=== PATIENT | female | born 1955 | race Caucasian/White ===

== ENCOUNTER 2021-04-01 15:16 | Inpatient (IN) ==
[2021-04-01] MEDS ORDERED: ALBUTEROL/IPRATROPIUM 3 ML NEB RESP TX STA (15:47)
[2021-04-01 15:57] LABS: Basophils % 0.2 % (0.0-0.8); Eosinophils # 0.1 10*3/uL (0.0-0.87); Eosinophils % 0.3 % (0.00-10.9); Hematocrit 43.3 VOL% (35.7-47.0); Hemoglobin 13.9 GM/DL (12.0-16.0); Immature Granulocytes % 1.2 %; Lymphocytes # 1.9 10*3/uL (1.4-4.0); Lymphocytes % 11.2 % (21.3-54.2); Mean Corpuscular HGB Conc 32.1 GM/DL (32-36); Mean Corpuscular Volume 97.1 FL (87-102); Mean Platelet Volume 10.4 FL (9.6-12.0); Monocytes % 4.1 % (1.7-12.7); Platelet Count 349 T/CUMM (130-400); Red Blood Count 4.46 MC/CUMM (3.8-5.5); Red Cell Distribution Width 17.1 % (9.3-17.3); White Blood Count 17.2 T/CUMM (4-12)
[2021-04-01 16:05] LABS: ABG Base Excess 0.4 MMOL/L (-2.5-2.5); ABG HCO3 23.5 MMOL/L (20-26); ABG Oxygen Saturation 41.4 % (95-100); ABG PCO2 50.1 MM HG (35-48); ABG TCO2 24.1 MMOL/L (23-27)
[2021-04-01 16:07] LABS: ABG PO2 27.2 MM HG (80-95)
[2021-04-01 16:25] LABS: ABG Base Excess -0.1 MMOL/L (-2.5-2.5); ABG HCO3 24.2 MMOL/L (20-26); ABG Oxygen Saturation 91.4 % (95-100); ABG PCO2 40.7 MM HG (35-48); ABG PH 7.392 (7.35-7.45); ABG PO2 67.3 MM HG (80-95); ABG TCO2 21.6 MMOL/L (23-27)
[2021-04-01 17:17] LABS: Bilirubin,Urine Negative (Negative); Blood, Urine Negative (Negative); Glucose,Urine (UA) Negative (Negative); Ketones,Urine 5 mg/dL (Negative); Mucus,Urine Occasional /LPF (Occasional); Nitrite,Urine Negative (Negative); Protein,Urine 30 MG/DL; RBC,Urine <1 /HPF (0-4); Squamous Epithelial Cell,Urine Occasional /HPF (0-10); Urine Appearance CLOUDY (Clear); Urine Color Amber (Yellow); Urine Urobilinogen < 2.0 EU/DL (0.2-1.0)
[2021-04-01] MEDS ORDERED: NALOXONE 0.4 MG/ML VIAL ONE (18:03)
[2021-04-01] MEDS ORDERED: NALOXONE 0.4 MG/ML VIAL IV STA ×2 (18:31→21:06)
[2021-04-01 19:59] LABS: Albumin 2.6 G/DL (3.4-5.0); Bilirubin,Total 0.6 MG/DL (0.2-1.0); Calcium 9.1 MG/DL (8.5-10.1); Osmolality,Calculated 292.8 MOS/KG (273-304); Potassium 4.2 MMOL/L (3.5-5.1); Total Protein 7.1 G/DL (6.4-8.2)
[2021-04-01] MEDS ORDERED: ONDANSETRON 4 MG/2 ML VIAL IV PRN (21:47)
[2021-04-01] MEDS ORDERED: NICOTINE 21 MG/24 HR PATCH TRANSDERM PRN (21:47)
[2021-04-01] MEDS ORDERED: GLUCAGON 1 MG VIAL IM PRN (21:47)
[2021-04-01] MEDS ORDERED: ACETAMINOPHEN 325 MG TABLET PO PRN (21:47)
[2021-04-01] MEDS ORDERED: guaiFENesin/DM ER 600-30 MG TABLET PO PRN (21:47)
[2021-04-01] MEDS ORDERED: DEXTROSE 50% 25 GM/50 ML VIAL IV PRN (21:47)
[2021-04-01] MEDS ORDERED: FUROSEMIDE 20 MG TABLET PO PRN (22:26)
[2021-04-01] MEDS ORDERED: [UNRECOGNIZED DRUG - REMARK] BOTH NARES PRN (22:26)
[2021-04-02] MEDS: SODIUM CHLORIDE 0.9% 1,000 ML IV SCH ×2 (00:31→12:15)
[2021-04-02] MEDS: ALBUTEROL/IPRATROPIUM 3 ML NEB RESP TX SCH ×4 (00:54→19:18)
[2021-04-02] MEDS ORDERED: MORPHINE 4 MG/1 ML VIAL IV ONE (08:58)
[2021-04-02] MEDS: BUDESONIDE/FORMOTEROL 80-4.5 INHALER 6.9 GM INH SCH ×2 (09:25→21:18)
[2021-04-02] MEDS: FLUTICASONE 50 MCG NASAL SPRAY 16 GM BOTTLE BOTH NARES SCH (09:27)
[2021-04-02] MEDS: GABAPENTIN 300 MG CAPSULE PO SCH ×4 (09:28→21:48)
[2021-04-02] MEDS: METOPROLOL SUCCINATE XL 25 MG TABLET PO SCH (09:30)
[2021-04-02] MEDS: MONTELUKAST 10 MG TABLET PO SCH (09:30)
[2021-04-02] MEDS: LOSARTAN 50 MG TABLET PO SCH (09:30)
[2021-04-02] MEDS: FOLIC ACID 1 MG TABLET PO SCH (09:31)
[2021-04-02] MEDS: DICLOFENAC SODIUM 75 MG TABLET PO SCH ×2 (09:31→21:46)
[2021-04-02] MEDS: BACLOFEN 10 MG TABLET PO SCH ×4 (09:31→21:46)
[2021-04-02] MEDS: oxyCODONE/ACETAMINOPHEN 5-325 MG TABLET PO PRN (12:28)
[2021-04-02] MEDS: methylPREDNISolone SOD SUC 40 MG/1 ML VIAL IV SCH ×2 (13:30→18:14)
[2021-04-02] MEDS ORDERED: ENOXAPARIN 80 MG/0.8 ML SYRINGE SUBCUT SCH (15:00)
[2021-04-02] MEDS: HEPARIN DRIP 25,000 UNITS/500 ML PREMIX IV SCH (16:28)
[2021-04-02] MEDS: SIMVASTATIN 20 MG TABLET PO SCH ×2 (21:16→21:48)
[2021-04-02] MEDS: PIPERACILLIN/TAZOBACTAM 3,375 MG in SODIUM CHLORIDE 0.9% 100 ML IV SCH (21:18)
[2021-04-03] MEDS: methylPREDNISolone SOD SUC 40 MG/1 ML VIAL IV SCH ×4 (00:38→18:15)
[2021-04-03] MEDS: ALBUTEROL/IPRATROPIUM 3 ML NEB RESP TX SCH ×4 (01:00→19:12)
[2021-04-03] MEDS: PIPERACILLIN/TAZOBACTAM 3,375 MG in SODIUM CHLORIDE 0.9% 100 ML IV SCH ×3 (04:08→23:01)
[2021-04-03 04:56] LABS: Basophils % 0.2 % (0.0-0.8); Hematocrit 40.5 VOL% (35.7-47.0); Hemoglobin 13.2 GM/DL (12.0-16.0); Immature Granulocytes % 0.9 %; Immature Granulocytes Absolute 0.16 #; Lymphocytes % 5.5 % (21.3-54.2); Mean Corpuscular HGB Conc 32.6 GM/DL (32-36); Mean Corpuscular Volume 95.3 FL (87-102); Mean Platelet Volume 10.3 FL (9.6-12.0); Monocytes % 2.5 % (1.7-12.7); Neutrophils % 90.9 % (38.7-73.9); Platelet Count 337 T/CUMM (130-400); Red Blood Count 4.25 MC/CUMM (3.8-5.5); Red Cell Distribution Width 16.9 % (9.3-17.3); White Blood Count 17.6 T/CUMM (4-12)
[2021-04-03 05:11] LABS: Calcium 9.7 MG/DL (8.5-10.1)
[2021-04-03 05:12] LABS: Osmolality,Calculated 295.6 MOS/KG (273-304); Potassium 3.7 MMOL/L (3.5-5.1)
[2021-04-03 05:28] LABS: Lymphocytes 11 % (20-55); Segmented Neutrophils 84 % (50-85); Total Cells Counted 100
[2021-04-03 05:29] LABS: Hypochromasia Slight; Microcytosis Slight; Platelet Estimate Adequate
[2021-04-03] MEDS: MORPHINE 4 MG/1 ML VIAL IV PRN ×2 (08:02→13:23)
[2021-04-03] MEDS: CETIRIZINE 10 MG TABLET PO PRN (08:04)
[2021-04-03] MEDS: FLUTICASONE 50 MCG NASAL SPRAY 16 GM BOTTLE BOTH NARES SCH (08:04)
[2021-04-03] MEDS: GABAPENTIN 300 MG CAPSULE PO SCH ×2 (08:04→22:17)
[2021-04-03] MEDS: DICLOFENAC SODIUM 75 MG TABLET PO SCH ×2 (08:04→22:17)
[2021-04-03] MEDS: FOLIC ACID 1 MG TABLET PO SCH (08:04)
[2021-04-03] MEDS: BUDESONIDE/FORMOTEROL 80-4.5 INHALER 6.9 GM INH SCH ×2 (08:04→22:17)
[2021-04-03] MEDS: METOPROLOL SUCCINATE XL 25 MG TABLET PO SCH (08:04)
[2021-04-03] MEDS: MONTELUKAST 10 MG TABLET PO SCH (08:04)
[2021-04-03] MEDS: BACLOFEN 10 MG TABLET PO SCH ×3 (08:05→22:17)
[2021-04-03] MEDS: LOSARTAN 50 MG TABLET PO SCH (08:05)
[2021-04-03] MEDS: oxyCODONE/ACETAMINOPHEN 5-325 MG TABLET PO PRN ×2 (10:51→22:17)
[2021-04-03] MEDS: HEPARIN DRIP 25,000 UNITS/500 ML PREMIX IV SCH ×2 (16:19→22:57)
[2021-04-03] MEDS: MORPHINE ER 15 MG TABLET PO SCH (17:25)
[2021-04-03] MEDS: SIMVASTATIN 20 MG TABLET PO SCH (22:17)
[2021-04-03] MEDS ORDERED: HEPARIN 5,000 UNIT/1 ML VIAL IV ONE (22:47)
[2021-04-04] MEDS: methylPREDNISolone SOD SUC 40 MG/1 ML VIAL IV SCH ×4 (01:10→18:19)
[2021-04-04] MEDS: ALBUTEROL/IPRATROPIUM 3 ML NEB RESP TX SCH ×4 (02:46→19:31)
[2021-04-04 02:49] LABS: Basophils % 0.1 % (0.0-0.8); Hematocrit 36.5 VOL% (35.7-47.0); Hemoglobin 11.6 GM/DL (12.0-16.0); Immature Granulocytes % 2.5 %; Immature Granulocytes Absolute 0.57 #; Lymphocytes # 1.1 10*3/uL (1.4-4.0); Lymphocytes % 4.9 % (21.3-54.2); Mean Corpuscular HGB Conc 31.8 GM/DL (32-36); Mean Corpuscular Volume 96.1 FL (87-102); Mean Platelet Volume 10.3 FL (9.6-12.0); Monocytes % 3.9 % (1.7-12.7); NRBC # 0.02 10*3/uL; Neutrophils % 88.6 % (38.7-73.9); Platelet Count 355 T/CUMM (130-400); Red Cell Distribution Width 16.9 % (9.3-17.3)
[2021-04-04 03:09] LABS: Calcium 8.9 MG/DL (8.5-10.1); Osmolality,Calculated 304.4 MOS/KG (273-304)
[2021-04-04 03:13] LABS: Lymphocytes 10 % (20-55); Platelet Estimate Normal; Segmented Neutrophils 88 % (50-85); Total Cells Counted 100
[2021-04-04] MEDS: PIPERACILLIN/TAZOBACTAM 3,375 MG in SODIUM CHLORIDE 0.9% 100 ML IV SCH ×3 (06:37→21:58)
[2021-04-04] MEDS: MORPHINE ER 15 MG TABLET PO SCH ×3 (07:07→18:18)
[2021-04-04] MEDS: GABAPENTIN 300 MG CAPSULE PO SCH ×3 (09:00→21:52)
[2021-04-04] MEDS: FOLIC ACID 1 MG TABLET PO SCH (09:00)
[2021-04-04] MEDS: LOSARTAN 50 MG TABLET PO SCH (09:00)
[2021-04-04] MEDS: METOPROLOL SUCCINATE XL 25 MG TABLET PO SCH (09:00)
[2021-04-04] MEDS: DICLOFENAC SODIUM 75 MG TABLET PO SCH ×2 (09:00→21:52)
[2021-04-04] MEDS: BACLOFEN 10 MG TABLET PO SCH ×3 (09:00→21:52)
[2021-04-04] MEDS: MONTELUKAST 10 MG TABLET PO SCH (09:00)
[2021-04-04] MEDS: FLUTICASONE 50 MCG NASAL SPRAY 16 GM BOTTLE BOTH NARES SCH (09:03)
[2021-04-04] MEDS: BUDESONIDE/FORMOTEROL 80-4.5 INHALER 6.9 GM INH SCH ×2 (09:03→22:29)
[2021-04-04] MEDS: oxyCODONE/ACETAMINOPHEN 5-325 MG TABLET PO PRN (10:35)
[2021-04-04] MEDS: HEPARIN DRIP 25,000 UNITS/500 ML PREMIX IV SCH (13:26)
[2021-04-04] MEDS: SODIUM CHLORIDE 0.45% 1,000 ML IV SCH (14:30)
[2021-04-04] MEDS: BACITRACIN OINT 0.9 GM PACK TOP SCH (18:19)
[2021-04-04] MEDS: SIMVASTATIN 20 MG TABLET PO SCH (21:52)
[2021-04-05] MEDS: ALBUTEROL/IPRATROPIUM 3 ML NEB RESP TX SCH ×4 (00:18→19:09)
[2021-04-05] MEDS: methylPREDNISolone SOD SUC 40 MG/1 ML VIAL IV SCH ×4 (02:13→21:21)
[2021-04-05 02:17] LABS: Basophils % 0.2 % (0.0-0.8); Hematocrit 36.3 VOL% (35.7-47.0); Hemoglobin 11.5 GM/DL (12.0-16.0); Immature Granulocytes % 5.2 %; Immature Granulocytes Absolute 1.32 #; Lymphocytes % 3.9 % (21.3-54.2); Mean Corpuscular HGB Conc 31.7 GM/DL (32-36); Mean Corpuscular Volume 96.5 FL (87-102); Mean Platelet Volume 10.3 FL (9.6-12.0); Monocytes % 5.4 % (1.7-12.7); NRBC # 0.03 10*3/uL; Neutrophils % 85.3 % (38.7-73.9); Platelet Count 392 T/CUMM (130-400); Red Blood Count 3.76 MC/CUMM (3.8-5.5); White Blood Count 25.2 T/CUMM (4-12)
[2021-04-05 02:34] LABS: Calcium 8.7 MG/DL (8.5-10.1); Osmolality,Calculated 298.8 MOS/KG (273-304); Potassium 3.7 MMOL/L (3.5-5.1)
[2021-04-05 02:41] LABS: Lymphocytes 4 % (20-55); Segmented Neutrophils 93 % (50-85); Total Cells Counted 100
[2021-04-05 02:42] LABS: Anisocytosis 1+; Hypochromasia 1+; Microcytosis 1+; Platelet Estimate Normal; Polychromasia Few
[2021-04-05] MEDS: SODIUM CHLORIDE 0.45% 1,000 ML IV SCH ×2 (03:48→17:25)
[2021-04-05] MEDS: HEPARIN DRIP 25,000 UNITS/500 ML PREMIX IV SCH ×2 (03:58→21:27)
[2021-04-05] MEDS: PIPERACILLIN/TAZOBACTAM 3,375 MG in SODIUM CHLORIDE 0.9% 100 ML IV SCH ×3 (05:16→21:19)
[2021-04-05] MEDS: MORPHINE ER 15 MG TABLET PO SCH ×3 (05:17→21:19)
[2021-04-05] MEDS: FOLIC ACID 1 MG TABLET PO SCH (08:18)
[2021-04-05] MEDS: BACLOFEN 10 MG TABLET PO SCH ×3 (08:18→21:19)
[2021-04-05] MEDS: MONTELUKAST 10 MG TABLET PO SCH (08:18)
[2021-04-05] MEDS: DICLOFENAC SODIUM 75 MG TABLET PO SCH ×2 (08:19→21:19)
[2021-04-05] MEDS: METOPROLOL SUCCINATE XL 25 MG TABLET PO SCH (08:19)
[2021-04-05] MEDS: GABAPENTIN 300 MG CAPSULE PO SCH ×3 (08:19→21:19)
[2021-04-05] MEDS: LOSARTAN 50 MG TABLET PO SCH (08:19)
[2021-04-05] MEDS: oxyCODONE/ACETAMINOPHEN 5-325 MG TABLET PO PRN ×2 (08:29→14:32)
[2021-04-05] MEDS: BUDESONIDE/FORMOTEROL 80-4.5 INHALER 6.9 GM INH SCH ×2 (08:45→21:20)
[2021-04-05] MEDS: FLUTICASONE 50 MCG NASAL SPRAY 16 GM BOTTLE BOTH NARES SCH (08:45)
[2021-04-05] MEDS: BACITRACIN OINT 0.9 GM PACK TOP SCH (08:46)
[2021-04-05] MEDS ORDERED: METHOTREXATE 2.5 MG TABLET PO SCH (09:00)
[2021-04-05] MEDS: SIMVASTATIN 20 MG TABLET PO SCH (21:19)
[2021-04-06] MEDS: ALBUTEROL/IPRATROPIUM 3 ML NEB RESP TX SCH ×4 (00:31→21:10)
[2021-04-06 02:22] LABS: Basophils # 0.1 10*3/uL (0.0-0.2); Basophils % 0.3 % (0.0-0.8); Hematocrit 35.7 VOL% (35.7-47.0); Hemoglobin 11.3 GM/DL (12.0-16.0); Immature Granulocytes % 6.6 %; Immature Granulocytes Absolute 1.67 #; Lymphocytes # 1.4 10*3/uL (1.4-4.0); Lymphocytes % 5.4 % (21.3-54.2); Mean Corpuscular HGB Conc 31.7 GM/DL (32-36); Mean Corpuscular Volume 97.8 FL (87-102); Mean Platelet Volume 10.3 FL (9.6-12.0); Neutrophils % 81.7 % (38.7-73.9); Platelet Count 390 T/CUMM (130-400); Red Blood Count 3.65 MC/CUMM (3.8-5.5); Red Cell Distribution Width 16.9 % (9.3-17.3); White Blood Count 25.5 T/CUMM (4-12)
[2021-04-06 02:43] LABS: Calcium 8.2 MG/DL (8.5-10.1); Osmolality,Calculated 298.7 MOS/KG (273-304); Potassium 3.8 MMOL/L (3.5-5.1)
[2021-04-06 02:44] LABS: Lymphocytes 2 % (20-55); Platelet Estimate Normal; Segmented Neutrophils 96 % (50-85); Total Cells Counted 100
[2021-04-06] MEDS: PIPERACILLIN/TAZOBACTAM 3,375 MG in SODIUM CHLORIDE 0.9% 100 ML IV SCH ×3 (04:43→21:50)
[2021-04-06] MEDS: methylPREDNISolone SOD SUC 40 MG/1 ML VIAL IV SCH ×3 (05:55→21:56)
[2021-04-06] MEDS: oxyCODONE/ACETAMINOPHEN 5-325 MG TABLET PO PRN ×2 (06:00→17:35)
[2021-04-06] MEDS: MORPHINE 4 MG/1 ML VIAL IV PRN ×3 (08:42→22:36)
[2021-04-06] MEDS: LOSARTAN 50 MG TABLET PO SCH (09:00)
[2021-04-06] MEDS: MORPHINE ER 15 MG TABLET PO SCH ×2 (09:00→19:50)
[2021-04-06] MEDS: GABAPENTIN 300 MG CAPSULE PO SCH ×3 (09:00→21:50)
[2021-04-06] MEDS: BACLOFEN 10 MG TABLET PO SCH ×3 (09:00→21:50)
[2021-04-06] MEDS: FOLIC ACID 1 MG TABLET PO SCH (09:00)
[2021-04-06] MEDS: MONTELUKAST 10 MG TABLET PO SCH (09:00)
[2021-04-06] MEDS ORDERED: LIDOCAINE 1% 20 ML VIAL ONE (10:37)
[2021-04-06] MEDS ORDERED: ROPIVACAINE 0.5% 30 ML VIAL ONE (10:37)
[2021-04-06] MEDS ORDERED: DEXMEDETOMIDINE 200 MCG/2 ML VIAL ONE (11:28)
[2021-04-06] MEDS ORDERED: LIDOCAINE 2% 5 ML VIAL ONE (11:28)
[2021-04-06] MEDS ORDERED: TISSUE ADHESIVE 1 EACH APPLICATOR TOP ONE (11:28)
[2021-04-06] MEDS ORDERED: propofoL 200 MG/20 ML VIAL IV ONE (11:28)
[2021-04-06] MEDS: HEPARIN DRIP 25,000 UNITS/500 ML PREMIX IV SCH (13:11)
[2021-04-06] MEDS: DICLOFENAC SODIUM 75 MG TABLET PO SCH ×2 (13:26→21:50)
[2021-04-06] MEDS: CYANOCOBALAMIN 1000 MCG/1 ML VIAL SUBCUT SCH (13:31)
[2021-04-06] MEDS: METOPROLOL SUCCINATE XL 25 MG TABLET PO SCH (13:32)
[2021-04-06] MEDS: FLUTICASONE 50 MCG NASAL SPRAY 16 GM BOTTLE BOTH NARES SCH (15:20)
[2021-04-06] MEDS: BUDESONIDE/FORMOTEROL 80-4.5 INHALER 6.9 GM INH SCH ×2 (15:27→21:50)
[2021-04-06] MEDS: BACITRACIN OINT 0.9 GM PACK TOP SCH (15:28)
[2021-04-06] MEDS: SODIUM CHLORIDE 0.45% 1,000 ML IV SCH (15:35)
[2021-04-06] MEDS: DOCUSATE SODIUM 100 MG CAPSULE PO SCH (21:50)
[2021-04-06] MEDS: SIMVASTATIN 20 MG TABLET PO SCH (21:50)
[2021-04-07] MEDS: ALBUTEROL/IPRATROPIUM 3 ML NEB RESP TX SCH ×4 (00:14→20:11)
[2021-04-07] MEDS: oxyCODONE/ACETAMINOPHEN 5-325 MG TABLET PO PRN ×3 (00:20→15:27)
[2021-04-07] MEDS: PIPERACILLIN/TAZOBACTAM 3,375 MG in SODIUM CHLORIDE 0.9% 100 ML IV SCH ×3 (05:56→20:16)
[2021-04-07] MEDS: SODIUM CHLORIDE 0.45% 1,000 ML IV SCH ×2 (05:56→18:41)
[2021-04-07] MEDS: methylPREDNISolone SOD SUC 40 MG/1 ML VIAL IV SCH ×3 (05:57→21:15)
[2021-04-07 08:11] LABS: Basophils # 0.1 10*3/uL (0.0-0.2); Basophils % 0.3 % (0.0-0.8); Eosinophils # 0.1 10*3/uL (0.0-0.87); Eosinophils % 0.4 % (0.00-10.9); Hematocrit 33.5 VOL% (35.7-47.0); Hemoglobin 10.5 GM/DL (12.0-16.0); Immature Granulocytes % 7.1 %; Immature Granulocytes Absolute 1.96 #; Lymphocytes # 3.2 10*3/uL (1.4-4.0); Lymphocytes % 11.8 % (21.3-54.2); Mean Corpuscular HGB Conc 31.3 GM/DL (32-36); Mean Corpuscular Volume 100.9 FL (87-102); Mean Platelet Volume 10.5 FL (9.6-12.0); Monocytes % 4.5 % (1.7-12.7); NRBC # 0.04 10*3/uL; Neutrophils % 75.9 % (38.7-73.9); Platelet Count 366 T/CUMM (130-400); Red Blood Count 3.32 MC/CUMM (3.8-5.5); White Blood Count 27.6 T/CUMM (4-12)
[2021-04-07 08:29] LABS: Calcium 8.2 MG/DL (8.5-10.1); Hypochromasia 1+; Lymphocytes 12 % (20-55); Microcytosis 1+; Osmolality,Calculated 288.8 MOS/KG (273-304); Platelet Estimate Adequate; Potassium 3.5 MMOL/L (3.5-5.1); Segmented Neutrophils 81 % (50-85); Total Cells Counted 100
[2021-04-07] MEDS: MORPHINE ER 15 MG TABLET PO SCH ×2 (08:43→17:38)
[2021-04-07] MEDS: MONTELUKAST 10 MG TABLET PO SCH (08:43)
[2021-04-07] MEDS: FLUTICASONE 50 MCG NASAL SPRAY 16 GM BOTTLE BOTH NARES SCH (08:43)
[2021-04-07] MEDS: DOCUSATE SODIUM 100 MG CAPSULE PO SCH ×2 (08:43→20:15)
[2021-04-07] MEDS: BUDESONIDE/FORMOTEROL 80-4.5 INHALER 6.9 GM INH SCH ×2 (08:43→20:16)
[2021-04-07] MEDS: METOPROLOL SUCCINATE XL 25 MG TABLET PO SCH (08:44)
[2021-04-07] MEDS: FOLIC ACID 1 MG TABLET PO SCH (08:44)
[2021-04-07] MEDS: GABAPENTIN 300 MG CAPSULE PO SCH ×3 (08:44→20:15)
[2021-04-07] MEDS: BACLOFEN 10 MG TABLET PO SCH ×3 (08:44→20:16)
[2021-04-07] MEDS: LOSARTAN 50 MG TABLET PO SCH (08:44)
[2021-04-07] MEDS: BACITRACIN OINT 0.9 GM PACK TOP SCH (08:45)
[2021-04-07] MEDS: DICLOFENAC SODIUM 75 MG TABLET PO SCH ×2 (08:45→20:15)
[2021-04-07] MEDS: POLYETHYLENE GLYCOL POWDER 17 GM PACK PO SCH (08:50)
[2021-04-07] MEDS: MORPHINE 4 MG/1 ML VIAL IV PRN ×2 (12:47→20:15)
[2021-04-07] MEDS: PANTOPRAZOLE 40 MG TABLET PO SCH (12:49)
[2021-04-07 13:32] LABS: Folate 6.62 NG/ML (5.38-24.0)
[2021-04-07] MEDS: HEPARIN DRIP 25,000 UNITS/500 ML PREMIX IV SCH (14:13)
[2021-04-07] MEDS: SIMVASTATIN 20 MG TABLET PO SCH (20:15)
[2021-04-08] MEDS: ALBUTEROL/IPRATROPIUM 3 ML NEB RESP TX SCH ×4 (00:21→19:33)
[2021-04-08] MEDS: MORPHINE ER 15 MG TABLET PO SCH ×4 (02:30→23:00)
[2021-04-08 04:53] LABS: Basophils # 0.1 10*3/uL (0.0-0.2); Basophils % 0.3 % (0.0-0.8); Eosinophils % 0.1 % (0.00-10.9); Hemoglobin 10.5 GM/DL (12.0-16.0); Immature Granulocytes % 7.4 %; Immature Granulocytes Absolute 2.23 #; Lymphocytes % 6.7 % (21.3-54.2); Mean Corpuscular HGB Conc 33.9 GM/DL (32-36); Mean Platelet Volume 11.1 FL (9.6-12.0); Monocytes % 3.1 % (1.7-12.7); NRBC # 0.05 10*3/uL; Neutrophils % 82.4 % (38.7-73.9); Platelet Count 382 T/CUMM (130-400); Red Blood Count 3.01 MC/CUMM (3.8-5.5); Red Cell Distribution Width 19.9 % (9.3-17.3)
[2021-04-08 05:02] LABS: Calcium 8.3 MG/DL (8.5-10.1); Osmolality,Calculated 291.8 MOS/KG (273-304); Potassium 3.9 MMOL/L (3.5-5.1)
[2021-04-08] MEDS: methylPREDNISolone SOD SUC 40 MG/1 ML VIAL IV SCH ×3 (05:37→21:10)
[2021-04-08] MEDS: PIPERACILLIN/TAZOBACTAM 3,375 MG in SODIUM CHLORIDE 0.9% 100 ML IV SCH ×3 (05:38→21:09)
[2021-04-08] MEDS: MORPHINE 4 MG/1 ML VIAL IV PRN ×2 (05:49→13:01)
[2021-04-08 08:15] LABS: Band Neutrophils 1 % (0-10); Lymphocytes 4 % (20-55); Segmented Neutrophils 92 % (50-85); Total Cells Counted 100
[2021-04-08 08:16] LABS: Anisocytosis 1+; Macrocytosis 1+; Platelet Estimate Normal
[2021-04-08] MEDS: GABAPENTIN 300 MG CAPSULE PO SCH ×3 (08:28→21:11)
[2021-04-08] MEDS: BACLOFEN 10 MG TABLET PO SCH ×3 (08:28→21:12)
[2021-04-08] MEDS: METOPROLOL SUCCINATE XL 25 MG TABLET PO SCH (08:29)
[2021-04-08] MEDS: PANTOPRAZOLE 40 MG TABLET PO SCH (08:29)
[2021-04-08] MEDS: FOLIC ACID 1 MG TABLET PO SCH (08:29)
[2021-04-08] MEDS: DOCUSATE SODIUM 100 MG CAPSULE PO SCH ×2 (08:29→21:12)
[2021-04-08] MEDS: MONTELUKAST 10 MG TABLET PO SCH (08:29)
[2021-04-08] MEDS: LOSARTAN 50 MG TABLET PO SCH (08:29)
[2021-04-08] MEDS: BUDESONIDE/FORMOTEROL 80-4.5 INHALER 6.9 GM INH SCH ×2 (08:30→23:01)
[2021-04-08] MEDS: POLYETHYLENE GLYCOL POWDER 17 GM PACK PO SCH (08:30)
[2021-04-08] MEDS: FLUTICASONE 50 MCG NASAL SPRAY 16 GM BOTTLE BOTH NARES SCH (08:30)
[2021-04-08] MEDS: BACITRACIN OINT 0.9 GM PACK TOP SCH (08:32)
[2021-04-08] MEDS: DICLOFENAC SODIUM 75 MG TABLET PO SCH ×2 (08:33→21:12)
[2021-04-08] MEDS ORDERED: ERGOCALCIFEROL 50,000 UNIT CAPSULE PO SCH (09:00)
[2021-04-08] MEDS: oxyCODONE/ACETAMINOPHEN 5-325 MG TABLET PO PRN ×3 (09:52→21:11)
[2021-04-08] MEDS: SODIUM CHLORIDE 0.45% 1,000 ML IV SCH ×3 (09:54→23:15)
[2021-04-08] MEDS: diphenhydrAMINE CAP 25 MG CAPSULE PO PRN (19:12)
[2021-04-08] MEDS: SIMVASTATIN 20 MG TABLET PO SCH (21:12)
[2021-04-08] MEDS: HEPARIN DRIP 25,000 UNITS/500 ML PREMIX IV SCH (21:13)
[2021-04-09] MEDS: ALBUTEROL/IPRATROPIUM 3 ML NEB RESP TX SCH ×4 (00:41→20:00)
[2021-04-09] MEDS: MORPHINE ER 15 MG TABLET PO SCH ×4 (01:22→21:30)
[2021-04-09] MEDS: PIPERACILLIN/TAZOBACTAM 3,375 MG in SODIUM CHLORIDE 0.9% 100 ML IV SCH (06:05)
[2021-04-09] MEDS: methylPREDNISolone SOD SUC 40 MG/1 ML VIAL IV SCH ×3 (06:05→21:31)
[2021-04-09] MEDS: diphenhydrAMINE CAP 25 MG CAPSULE PO PRN ×2 (06:40→11:45)
[2021-04-09] MEDS: GABAPENTIN 300 MG CAPSULE PO SCH ×3 (09:12→21:31)
[2021-04-09] MEDS: POLYETHYLENE GLYCOL POWDER 17 GM PACK PO SCH (09:12)
[2021-04-09] MEDS: DICLOFENAC SODIUM 75 MG TABLET PO SCH ×2 (09:13→21:30)
[2021-04-09] MEDS: BACLOFEN 10 MG TABLET PO SCH ×3 (09:13→21:31)
[2021-04-09] MEDS: MONTELUKAST 10 MG TABLET PO SCH (09:13)
[2021-04-09] MEDS: FOLIC ACID 1 MG TABLET PO SCH (09:13)
[2021-04-09] MEDS: LOSARTAN 50 MG TABLET PO SCH (09:13)
[2021-04-09] MEDS: METOPROLOL SUCCINATE XL 25 MG TABLET PO SCH (09:13)
[2021-04-09] MEDS: PANTOPRAZOLE 40 MG TABLET PO SCH (09:13)
[2021-04-09] MEDS: DOCUSATE SODIUM 100 MG CAPSULE PO SCH ×2 (09:13→21:30)
[2021-04-09] MEDS: FLUTICASONE 50 MCG NASAL SPRAY 16 GM BOTTLE BOTH NARES SCH (09:15)
[2021-04-09] MEDS: BUDESONIDE/FORMOTEROL 80-4.5 INHALER 6.9 GM INH SCH ×2 (09:15→21:30)
[2021-04-09] MEDS: BACITRACIN OINT 0.9 GM PACK TOP SCH (09:16)
[2021-04-09] MEDS: oxyCODONE/ACETAMINOPHEN 5-325 MG TABLET PO PRN ×2 (10:45→18:41)
[2021-04-09] MEDS: SODIUM CHLORIDE 0.45% 1,000 ML IV SCH (15:14)
[2021-04-09] MEDS: HEPARIN DRIP 25,000 UNITS/500 ML PREMIX IV SCH (15:16)
[2021-04-09] MEDS: HydrOXYzine PAMOATE 25 MG CAPSULE PO PRN (16:45)
[2021-04-09] MEDS: TRIAMCINOLONE 0.1% CREAM 15 GM TUBE TOP SCH ×2 (17:35→21:32)
[2021-04-09] MEDS: SIMVASTATIN 20 MG TABLET PO SCH (21:30)
[2021-04-09] MEDS: MORPHINE 4 MG/1 ML VIAL IV PRN (23:39)
[2021-04-10] MEDS: ALBUTEROL/IPRATROPIUM 3 ML NEB RESP TX SCH ×4 (00:52→20:17)
[2021-04-10] MEDS: SODIUM CHLORIDE 0.45% 1,000 ML IV SCH ×2 (04:32→18:43)
[2021-04-10] MEDS: methylPREDNISolone SOD SUC 40 MG/1 ML VIAL IV SCH ×3 (06:04→22:58)
[2021-04-10] MEDS: MORPHINE ER 15 MG TABLET PO SCH ×3 (06:05→22:16)
[2021-04-10 06:50] LABS: Basophils # 0.1 10*3/uL (0.0-0.2); Basophils % 0.4 % (0.0-0.8); Eosinophils # 0.1 10*3/uL (0.0-0.87); Eosinophils % 0.2 % (0.00-10.9); Hematocrit 26.5 VOL% (35.7-47.0); Hemoglobin 9.5 GM/DL (12.0-16.0); Immature Granulocytes % 7.1 %; Immature Granulocytes Absolute 2.12 #; Lymphocytes # 2.8 10*3/uL (1.4-4.0); Lymphocytes % 9.4 % (21.3-54.2); Mean Corpuscular HGB Conc 35.8 GM/DL (32-36); Mean Corpuscular Volume 104.7 FL (87-102); Mean Platelet Volume 11.8 FL (9.6-12.0); Monocytes % 4.7 % (1.7-12.7); NRBC # 0.08 10*3/uL; Neutrophils % 78.2 % (38.7-73.9); Platelet Count 380 T/CUMM (130-400); Red Blood Count 2.53 MC/CUMM (3.8-5.5); Red Cell Distribution Width 21.7 % (9.3-17.3); White Blood Count 29.9 T/CUMM (4-12)
[2021-04-10 07:02] LABS: Calcium 8.7 MG/DL (8.5-10.1); Potassium 3.9 MMOL/L (3.5-5.1)
[2021-04-10 07:22] LABS: Band Neutrophils 2 % (0-10); Hypochromasia 1+; Lymphocytes 7 % (20-55); Platelet Estimate Adequate; Segmented Neutrophils 89 % (50-85); Total Cells Counted 100
[2021-04-10 07:23] LABS: Microcytosis Slight
[2021-04-10] MEDS: MONTELUKAST 10 MG TABLET PO SCH (08:01)
[2021-04-10] MEDS: GABAPENTIN 300 MG CAPSULE PO SCH ×3 (08:01→20:54)
[2021-04-10] MEDS: MORPHINE 4 MG/1 ML VIAL IV PRN ×3 (08:01→21:15)
[2021-04-10] MEDS: DOCUSATE SODIUM 100 MG CAPSULE PO SCH ×2 (08:02→20:54)
[2021-04-10] MEDS: LOSARTAN 50 MG TABLET PO SCH (08:02)
[2021-04-10] MEDS: BACITRACIN OINT 0.9 GM PACK TOP SCH (08:02)
[2021-04-10] MEDS: PANTOPRAZOLE 40 MG TABLET PO SCH (08:02)
[2021-04-10] MEDS: BACLOFEN 10 MG TABLET PO SCH ×3 (08:02→21:00)
[2021-04-10] MEDS: FOLIC ACID 1 MG TABLET PO SCH (08:02)
[2021-04-10] MEDS: METOPROLOL SUCCINATE XL 25 MG TABLET PO SCH (08:02)
[2021-04-10] MEDS: DICLOFENAC SODIUM 75 MG TABLET PO SCH ×2 (08:02→20:54)
[2021-04-10] MEDS: TRIAMCINOLONE 0.1% CREAM 15 GM TUBE TOP SCH ×2 (08:03→21:00)
[2021-04-10] MEDS: FLUTICASONE 50 MCG NASAL SPRAY 16 GM BOTTLE BOTH NARES SCH (08:03)
[2021-04-10] MEDS: BUDESONIDE/FORMOTEROL 80-4.5 INHALER 6.9 GM INH SCH ×2 (08:03→21:00)
[2021-04-10] MEDS: POLYETHYLENE GLYCOL POWDER 17 GM PACK PO SCH (08:03)
[2021-04-10] MEDS: oxyCODONE/ACETAMINOPHEN 5-325 MG TABLET PO PRN ×2 (09:17→14:23)
[2021-04-10] MEDS: HEPARIN DRIP 25,000 UNITS/500 ML PREMIX IV SCH ×2 (09:28→12:48)
[2021-04-10] MEDS: SIMVASTATIN 20 MG TABLET PO SCH (20:54)
[2021-04-10] MEDS: HydrOXYzine PAMOATE 25 MG CAPSULE PO PRN (22:54)
[2021-04-11] MEDS: ALBUTEROL/IPRATROPIUM 3 ML NEB RESP TX SCH ×4 (01:00→18:40)
[2021-04-11] MEDS: oxyCODONE/ACETAMINOPHEN 5-325 MG TABLET PO PRN ×3 (02:48→15:35)
[2021-04-11] MEDS: methylPREDNISolone SOD SUC 40 MG/1 ML VIAL IV SCH ×2 (05:58→18:08)
[2021-04-11] MEDS: MORPHINE ER 15 MG TABLET PO SCH (06:01)
[2021-04-11] MEDS: SODIUM CHLORIDE 0.45% 1,000 ML IV SCH ×2 (06:01→22:44)
[2021-04-11] MEDS ORDERED: HEPARIN DRIP 25,000 UNITS/500 ML PREMIX IV SCH (07:00)
[2021-04-11] MEDS: GABAPENTIN 300 MG CAPSULE PO SCH ×3 (09:03→20:31)
[2021-04-11] MEDS: APIXABAN 5 MG TABLET PO SCH ×2 (09:05→20:30)
[2021-04-11] MEDS: FOLIC ACID 1 MG TABLET PO SCH (09:06)
[2021-04-11] MEDS: PANTOPRAZOLE 40 MG TABLET PO SCH (09:07)
[2021-04-11] MEDS: DOCUSATE SODIUM 100 MG CAPSULE PO SCH ×2 (09:08→20:30)
[2021-04-11] MEDS: LOSARTAN 50 MG TABLET PO SCH (09:09)
[2021-04-11] MEDS: METOPROLOL SUCCINATE XL 25 MG TABLET PO SCH (09:09)
[2021-04-11] MEDS: BACLOFEN 10 MG TABLET PO SCH ×3 (09:10→20:30)
[2021-04-11] MEDS: DICLOFENAC SODIUM 75 MG TABLET PO SCH ×2 (09:10→20:31)
[2021-04-11] MEDS: MONTELUKAST 10 MG TABLET PO SCH (09:10)
[2021-04-11] MEDS: FLUTICASONE 50 MCG NASAL SPRAY 16 GM BOTTLE BOTH NARES SCH (09:11)
[2021-04-11] MEDS: BUDESONIDE/FORMOTEROL 80-4.5 INHALER 6.9 GM INH SCH ×2 (09:12→20:31)
[2021-04-11] MEDS: POLYETHYLENE GLYCOL POWDER 17 GM PACK PO SCH (09:14)
[2021-04-11] MEDS: TRIAMCINOLONE 0.1% CREAM 15 GM TUBE TOP SCH ×2 (09:16→20:30)
[2021-04-11] MEDS: BACITRACIN OINT 0.9 GM PACK TOP SCH (09:16)
[2021-04-11] MEDS: MORPHINE 4 MG/1 ML VIAL IV PRN ×2 (10:46→22:29)
[2021-04-11] MEDS: MORPHINE ER 30 MG TABLET PO SCH ×2 (13:04→20:30)
[2021-04-11] MEDS: SIMVASTATIN 20 MG TABLET PO SCH (20:31)
[2021-04-11] MEDS: HydrOXYzine PAMOATE 25 MG CAPSULE PO PRN (22:32)
[2021-04-12] MEDS: ALBUTEROL/IPRATROPIUM 3 ML NEB RESP TX SCH ×4 (00:40→20:08)
[2021-04-12] MEDS: MORPHINE ER 30 MG TABLET PO SCH ×3 (04:49→21:30)
[2021-04-12 05:00] LABS: Basophils % 0.1 % (0.0-0.8); Eosinophils % 0.1 % (0.00-10.9); Hematocrit 20.7 VOL% (35.7-47.0); Hemoglobin 7.6 GM/DL (12.0-16.0); Immature Granulocytes % 5.7 %; Immature Granulocytes Absolute 1.18 #; Lymphocytes # 2.2 10*3/uL (1.4-4.0); Lymphocytes % 10.4 % (21.3-54.2); Mean Corpuscular HGB Conc 36.7 GM/DL (32-36); Mean Corpuscular Volume 109.5 FL (87-102); Mean Platelet Volume 11.2 FL (9.6-12.0); Monocytes % 5.5 % (1.7-12.7); NRBC # 0.11 10*3/uL; Neutrophils % 78.2 % (38.7-73.9); Platelet Count 366 T/CUMM (130-400); Red Blood Count 1.89 MC/CUMM (3.8-5.5); Red Cell Distribution Width 23.9 % (9.3-17.3); White Blood Count 20.6 T/CUMM (4-12)
[2021-04-12 05:21] LABS: Band Neutrophils 1 % (0-10); Calcium 8.4 MG/DL (8.5-10.1); Eosinophils 1 % (0-10); Hypochromasia 1+; Lymphocytes 8 % (20-55); Microcytosis 1+; Nucleated Red Blood Cells 1 (0-5); Platelet Estimate Adequate; Potassium 4.1 MMOL/L (3.5-5.1); Segmented Neutrophils 86 % (50-85); Total Cells Counted 100
[2021-04-12] MEDS: methylPREDNISolone SOD SUC 40 MG/1 ML VIAL IV SCH (05:49)
[2021-04-12] MEDS: BACLOFEN 10 MG TABLET PO SCH ×3 (10:00→21:30)
[2021-04-12] MEDS: DICLOFENAC SODIUM 75 MG TABLET PO SCH ×2 (10:00→21:30)
[2021-04-12] MEDS: LOSARTAN 50 MG TABLET PO SCH (10:00)
[2021-04-12] MEDS: POLYETHYLENE GLYCOL POWDER 17 GM PACK PO SCH (10:00)
[2021-04-12] MEDS: MONTELUKAST 10 MG TABLET PO SCH (10:01)
[2021-04-12] MEDS: BACITRACIN OINT 0.9 GM PACK TOP SCH (10:01)
[2021-04-12] MEDS: GABAPENTIN 300 MG CAPSULE PO SCH ×3 (10:01→21:29)
[2021-04-12] MEDS: DOCUSATE SODIUM 100 MG CAPSULE PO SCH ×2 (10:01→21:30)
[2021-04-12] MEDS: PANTOPRAZOLE 40 MG TABLET PO SCH (10:01)
[2021-04-12] MEDS: METOPROLOL SUCCINATE XL 25 MG TABLET PO SCH (10:01)
[2021-04-12] MEDS: FOLIC ACID 1 MG TABLET PO SCH (10:01)
[2021-04-12] MEDS: APIXABAN 5 MG TABLET PO SCH ×2 (10:01→21:29)
[2021-04-12] MEDS: TRIAMCINOLONE 0.1% CREAM 15 GM TUBE TOP SCH ×2 (10:02→21:32)
[2021-04-12] MEDS: BUDESONIDE/FORMOTEROL 80-4.5 INHALER 6.9 GM INH SCH ×2 (10:09→21:30)
[2021-04-12] MEDS: FLUTICASONE 50 MCG NASAL SPRAY 16 GM BOTTLE BOTH NARES SCH (10:09)
[2021-04-12] MEDS: SODIUM CHLORIDE 0.45% 1,000 ML IV SCH (10:09)
[2021-04-12] MEDS: MORPHINE 4 MG/1 ML VIAL IV PRN ×3 (10:56→18:54)
[2021-04-12] MEDS: HydrOXYzine PAMOATE 25 MG CAPSULE PO PRN ×2 (11:17→13:41)
[2021-04-12] MEDS: SIMVASTATIN 20 MG TABLET PO SCH (21:30)
[2021-04-13] MEDS: oxyCODONE/ACETAMINOPHEN 5-325 MG TABLET PO PRN ×2 (00:17→18:47)
[2021-04-13] MEDS: SODIUM CHLORIDE 0.45% 1,000 ML IV SCH ×3 (00:18→09:22)
[2021-04-13] MEDS: ALBUTEROL/IPRATROPIUM 3 ML NEB RESP TX SCH ×4 (01:12→19:55)
[2021-04-13] MEDS: MORPHINE ER 30 MG TABLET PO SCH ×3 (04:54→21:29)
[2021-04-13] MEDS ORDERED: MAGNESIUM HYDROXIDE SUSP 30 ML UDCUP PO PRN (07:26)
[2021-04-13] MEDS ORDERED: LACTULOSE 20 GM/30 ML UDCUP PO PRN (07:27)
[2021-04-13] MEDS ORDERED: MYLANTA/LIDO VISC 2:1 300 ML BOTTLE SWISH/SWAL PRN (07:27)
[2021-04-13] MEDS ORDERED: guaiFENesin 200 MG/10 ML UDCUP PO PRN (07:27)
[2021-04-13] MEDS ORDERED: ALUMINUM/MAGNES/SIMETH MAX STR 30 ML UDCUP PO PRN (07:27)
[2021-04-13] MEDS ORDERED: MYLANTA/LIDO VISC 2:1 300 ML BOTTLE SWISH/SPIT PRN (07:27)
[2021-04-13] MEDS: MONTELUKAST 10 MG TABLET PO SCH (09:18)
[2021-04-13] MEDS: BACLOFEN 10 MG TABLET PO SCH ×3 (09:18→21:29)
[2021-04-13] MEDS: METOPROLOL SUCCINATE XL 25 MG TABLET PO SCH (09:18)
[2021-04-13] MEDS: GABAPENTIN 300 MG CAPSULE PO SCH ×3 (09:19→21:28)
[2021-04-13] MEDS: BACITRACIN OINT 0.9 GM PACK TOP SCH (09:19)
[2021-04-13] MEDS: APIXABAN 5 MG TABLET PO SCH ×2 (09:19→21:28)
[2021-04-13] MEDS: FOLIC ACID 1 MG TABLET PO SCH (09:19)
[2021-04-13] MEDS: PANTOPRAZOLE 40 MG TABLET PO SCH (09:19)
[2021-04-13] MEDS: predniSONE 20 MG TABLET PO SCH (09:19)
[2021-04-13] MEDS: DOCUSATE SODIUM 100 MG CAPSULE PO SCH ×2 (09:19→21:29)
[2021-04-13] MEDS: DICLOFENAC SODIUM 75 MG TABLET PO SCH ×2 (09:20→21:29)
[2021-04-13] MEDS: MORPHINE 4 MG/1 ML VIAL IV PRN ×2 (09:20→16:13)
[2021-04-13] MEDS: LOSARTAN 50 MG TABLET PO SCH (09:20)
[2021-04-13] MEDS: CETIRIZINE 10 MG TABLET PO PRN (09:20)
[2021-04-13] MEDS: CYANOCOBALAMIN 1000 MCG/1 ML VIAL SUBCUT SCH (09:20)
[2021-04-13] MEDS: TRIAMCINOLONE 0.1% CREAM 15 GM TUBE TOP SCH ×2 (09:21→21:30)
[2021-04-13] MEDS: FLUTICASONE 50 MCG NASAL SPRAY 16 GM BOTTLE BOTH NARES SCH (09:21)
[2021-04-13] MEDS: BUDESONIDE/FORMOTEROL 80-4.5 INHALER 6.9 GM INH SCH ×2 (09:21→21:30)
[2021-04-13] MEDS: POLYETHYLENE GLYCOL POWDER 17 GM PACK PO SCH (09:22)
[2021-04-13] MEDS ORDERED: CLORAZEPATE 7.5 MG TABLET PO PRN (09:23)
[2021-04-13] MEDS ORDERED: CLORAZEPATE 7.5 MG TABLET PO ONE (09:24)
[2021-04-13] MEDS: SIMVASTATIN 20 MG TABLET PO SCH (21:29)
[2021-04-14] MEDS: MORPHINE ER 30 MG TABLET PO SCH ×2 (05:17→13:44)
[2021-04-14] MEDS: ALBUTEROL/IPRATROPIUM 3 ML NEB RESP TX SCH ×2 (07:49)
[2021-04-14] MEDS: MONTELUKAST 10 MG TABLET PO SCH (08:45)
[2021-04-14] MEDS: POLYETHYLENE GLYCOL POWDER 17 GM PACK PO SCH (08:45)
[2021-04-14] MEDS: PANTOPRAZOLE 40 MG TABLET PO SCH (08:45)
[2021-04-14] MEDS: MORPHINE 4 MG/1 ML VIAL IV PRN (08:45)
[2021-04-14] MEDS: LOSARTAN 50 MG TABLET PO SCH (08:46)
[2021-04-14] MEDS: predniSONE 20 MG TABLET PO SCH (08:46)
[2021-04-14] MEDS: APIXABAN 5 MG TABLET PO SCH (08:46)
[2021-04-14] MEDS: DOCUSATE SODIUM 100 MG CAPSULE PO SCH (08:46)
[2021-04-14] MEDS: BACLOFEN 10 MG TABLET PO SCH (08:46)
[2021-04-14] MEDS: GABAPENTIN 300 MG CAPSULE PO SCH (08:47)
[2021-04-14] MEDS: FOLIC ACID 1 MG TABLET PO SCH (08:47)
[2021-04-14] MEDS: DICLOFENAC SODIUM 75 MG TABLET PO SCH (08:47)
[2021-04-14] MEDS: METOPROLOL SUCCINATE XL 25 MG TABLET PO SCH (08:47)
[2021-04-14] MEDS: FLUTICASONE 50 MCG NASAL SPRAY 16 GM BOTTLE BOTH NARES SCH (10:04)
[2021-04-14] MEDS: BACITRACIN OINT 0.9 GM PACK TOP SCH (10:04)
[2021-04-14] MEDS: BUDESONIDE/FORMOTEROL 80-4.5 INHALER 6.9 GM INH SCH (10:05)
[2021-04-14] MEDS: TRIAMCINOLONE 0.1% CREAM 15 GM TUBE TOP SCH (10:05)
[2021-04-14] MEDS: oxyCODONE/ACETAMINOPHEN 5-325 MG TABLET PO PRN (10:49)
[2021-04-14 11:54] VITALS: BP 118/47
== END 2021-04-14 14:47 | disposition hospice, home (50) | DRG 987 ==
LOC: N.EDINP 15:16 → N.ED 15:16 → SUATTDRO 21:47 → N.4E 22:45 → SUATTDRO 04-02 14:47
PROVIDERS: ADMIT Emergency Medicine; ATTEND Hospitalist